=== PATIENT | female | born 1990 | race Asian ===

== ENCOUNTER 2019-10-03 09:58 | Day surgery (SDC) | payer OTHER, SELFPAY ==
[2019-09-29 11:19] LABS: BILIRUBIN,URINE NEGATIVE (NEGATIVE); CLARITY/URINE CLEAR (CLEAR); COLOR,URINE YELLOW (YELLOW); GLUCOSE,URINE NEGATIVE (NEGATIVE); KETONES,URINE NEGATIVE (NEGATIVE); LEUKOCYTE ESTERASE ,URINE TRACE (NEGATIVE); NITRITE, URINE NEGATIVE (NEGATIVE); PROTEIN URINE NEGATIVE (NEGATIVE); UROBILINOGEN,URINE 0.2 (0.2-1.0)
[2019-09-29 11:24] LABS: BASOPHILS % (AUTO) 0.6 % (0.0-2.0); EOSINOPHILS # (AUTO) 0.1 K/uL (0.0-0.4); EOSINOPHILS % (AUTO) 0.7 % (0.0-4.0); HEMATOCRIT 38.2 % (36-48); HEMOGLOBIN 12.9 g/dL (12.0-16.0); LYMPHOCYTES # (AUTO) 1.3 K/uL (1.0-5.5); LYMPHOCYTES % (AUTO) 14.9 % (20.5-51.5); MEAN CORPUSCULAR HEMOGLOBIN 28 pg (27-31); MEAN CORPUSCULAR HGB CONC 34 % (32-36); MEAN CORPUSCULAR VOLUME 83 fL (79.0-98.0); MONOCYTES # (AUTO) 0.6 K/uL (0.0-1.0); MONOCYTES % (AUTO) 6.6 % (1.7-9.3); NEUTROPHILS # (AUTO) 6.8 K/uL (1.8-7.7); NEUTROPHILS % (AUTO) 77.2 % (40.0-70.0); PLATELET COUNT (AUTO) 281 K/uL (130-430); RED BLOOD CELL COUNT(AUTO) 4.62 MIL/uL (4.2-6.2); RED CELL DISTRIBUTION WIDTH 13.4 % (9.0-15.0); WHITE BLOOD COUNT (AUTO) 8.8 K/uL (4.8-10.8)
[2019-09-29 11:26] LABS: BLOOD, URINE TRACE (NEGATIVE)
[2019-09-29 11:39] LABS: BACTERIA,URINE RARE /HPF (None Seen)
[~2019-10-03] VITALS: Ht 167.6 cm; Wt 78.9 kg
[2019-10-03 10:29] LABS: HCG,QUAL RESULT NEGATIVE (NEGATIVE)
[2019-10-03] MEDS ORDERED: fentaNYL CITRATE/PF 100 MCG/2 ML AMP IVP ONE (11:26)
[2019-10-03] MEDS ORDERED: CEFAZOLIN 2 GM IVPB PREMIX 50 ML IV ONE (11:26)
[2019-10-03] MEDS ORDERED: PROPOFOL 200MG/ 20ML VIAL (DIPRIVAN) IV ONE (11:26)
[2019-10-03] MEDS ORDERED: SEVOFLURANE 15 MIN GAS INH ONE (11:26)
[2019-10-03] MEDS ORDERED: ONDANSETRON HCL 4 MG/2 ML VIAL IVP ONE (11:26)
[2019-10-03] MEDS ORDERED: DEXAMETHASONE SOD PHOSPHATE 4 MG/ML VIAL IVP ONE (11:26)
[2019-10-03] MEDS ORDERED: NS IRRIG SOLN 1000 ML IR ONE (11:26)
[2019-10-03] MEDS ORDERED: BACITRACIN 50,000 UNITS VIAL ONE ×2 (11:35→12:10)
[2019-10-03] MEDS ORDERED: fentaNYL CITRATE/PF 100 MCG/2 ML AMP IVP PRN (13:30)
[2019-10-03] MEDS ORDERED: HYDROmorphone 1 MG INJ. 1 MG/ML AMPUL IVP PRN (13:30)
[2019-10-03] MEDS ORDERED: ONDANSETRON HCL 4 MG/2 ML VIAL IVP PRN (13:30)
[2019-10-03] MEDS ORDERED: HYDROcodone/ACETAMIN 10-325 MG TAB PO ONE (14:00)
[2019-10-03] MEDS ORDERED: ONDANSETRON HCL 4 MG/2 ML VIAL ONE (14:18)
[2019-10-03] MEDS ORDERED: HYDROmorphone 1 MG INJ. 1 MG/ML AMPUL ONE (14:19)
[2019-10-03] MEDS ORDERED: HYDROcodone/ACETAMIN 10-325 MG TAB PO PRN (15:45)
[2019-10-03] MEDS ORDERED: HYDROcodone/ACETAMIN 10-325 MG TAB ONE (16:20)
[2019-10-03 16:27] VITALS: BP_SYST 135
== END 2019-10-03 17:10 | disposition home or self-care (01) ==
LOC: SMU 09:58 → SDS 09:58
PROVIDERS: ATTEND Orthopaedic Surgery
DX: S82.042A Displaced comminuted fracture of left patella, initial encounter for closed fracture (principal); W19.XXXA Unspecified fall, initial encounter; Y93.89 Activity, other specified; Y92.89 Other specified places as the place of occurrence of the external cause; Y99.8 Other external cause status
CPT/HCPCS: 36415; 76000; 81000; 84703 ×2; 85025; C1713; J0690; J1100; J1170; J2405; J2704; J3010; J7120; L1830

== ENCOUNTER 2021-04-22 09:30 | Inpatient (IN) | payer OTHER, SELFPAY ==
[~2021-04-22] VITALS: Ht 167.6 cm; Wt 95.3 kg
[2021-04-22] MEDS ORDERED: TERBUTALINE SULFATE 1 MG/ML VIAL SUBCUT ONE (13:00)
[2021-04-22] MEDS ORDERED: LR 500 ML IV ONE (13:00)
[2021-04-22] MEDS ORDERED: OXYTOCIN/0.9 % SODIUM CHLORIDE 1,000 ML IV SCH (13:00)
[2021-04-22 13:37] LABS: BASOPHILS % (AUTO) 0.6 % (0.0-2.0); EOSINOPHILS # (AUTO) 0.1 K/uL (0.0-0.4); EOSINOPHILS % (AUTO) 0.9 % (0.0-4.0); HEMATOCRIT 37.3 % (36-48); HEMOGLOBIN 12.9 g/dL (12.0-16.0); LYMPHOCYTES # (AUTO) 1.5 K/uL (1.0-5.5); LYMPHOCYTES % (AUTO) 17.4 % (20.5-51.5); MEAN CORPUSCULAR HEMOGLOBIN 29 pg (27-31); MEAN CORPUSCULAR HGB CONC 35 % (32-36); MEAN CORPUSCULAR VOLUME 84 fL (79.0-98.0); MONOCYTES # (AUTO) 0.9 K/uL (0.0-1.0); MONOCYTES % (AUTO) 9.7 % (1.7-9.3); NEUTROPHILS # (AUTO) 6.3 K/uL (1.8-7.7); NEUTROPHILS % (AUTO) 71.4 % (40.0-70.0); PLATELET COUNT (AUTO) 205 K/uL (130-430); RED BLOOD CELL COUNT(AUTO) 4.45 MIL/uL (4.2-6.2); RED CELL DISTRIBUTION WIDTH 14.1 % (9.0-15.0); WHITE BLOOD COUNT (AUTO) 8.8 K/uL (4.8-10.8)
[2021-04-22] MEDS: LR 1,000 ML IV SCH ×2 (14:25→19:01)
[2021-04-22 20:37] VITALS: BP_SYST 138
[2021-04-22] MEDS ORDERED: AMPICILLIN SODIUM 2 GM in NS 100 ML IV ONE (21:15)
[2021-04-22] MEDS: NALBUPHINE HCL 10 MG/ML AMP IVP PRN (22:57)
[2021-04-23] MEDS: AMPICILLIN SODIUM 1 GM in NS 50 ML IV SCH ×4 (02:15→14:07)
[2021-04-23] MEDS: NALBUPHINE HCL 10 MG/ML AMP IVP PRN ×2 (03:02→06:13)
[2021-04-23] MEDS ORDERED: AMPICILLIN SODIUM 1 GM VIAL ONE (03:49)
[2021-04-23] MEDS ORDERED: FENT2mCg/mL-ROPIVA0.2%/NS EPID 200 ML EP SCH (08:00)
[2021-04-23] MEDS ORDERED: ROPIVACAINE HCL/PF 0.2% 200 ML ONE (08:01)
[2021-04-23] MEDS ORDERED: fentaNYL CITRATE/PF 100 MCG/2 ML AMP ONE (08:09)
[2021-04-23] MEDS ORDERED: DIPHENHYDRAMINE INJ 50 MG/ML VIAL IVP PRN ×2 (10:00→20:15)
[2021-04-23] MEDS ORDERED: NALOXONE HCL 0.4 MG/ML AMP (NARCAN) IVP PRN ×4 (10:00→20:15)
[2021-04-23] MEDS ORDERED: ONDANSETRON HCL 4 MG/2 ML VIAL IVP PRN ×3 (10:00→20:15)
[2021-04-23] MEDS ORDERED: CEFAZOLIN 2 GM IVPB PREMIX 50 ML IV ONE (17:30)
[2021-04-23] MEDS ORDERED: LR 1,000 ML IV ONE (17:30)
[2021-04-23] MEDS ORDERED: OXYCODONE/ACETAMINOPHEN *10*mg/325 mg TABLET PO PRN (18:00)
[2021-04-23] MEDS ORDERED: RHO(D) IMMUNE GLOBULIN/MALTOSE 1500 UNITS/1.3 ML (WINHRO) IM PRN (18:00)
[2021-04-23] MEDS ORDERED: LR 1,000 ML IV SCH (18:00)
[2021-04-23] MEDS ORDERED: BISACODYL 10 MG/SUPPOSITORY RC PRN (18:00)
[2021-04-23] MEDS ORDERED: ANUSOL 1 EA SUPP.RECT (PREPARATION H) RC PRN (18:00)
[2021-04-23] MEDS ORDERED: OXYCODONE/ACETAMINOPHEN 5-325 TABLET PO PRN (18:00)
[2021-04-23] MEDS ORDERED: MEASLES,MUMPS&RUBELLA VACC/PF 12500 UNIT/0.5 ML VIAL SUBQ PRN (18:00)
[2021-04-23] MEDS ORDERED: TEMAZEPAM 15 MG CAPSULE PO PRN (18:00)
[2021-04-23] MEDS ORDERED: DIPH-TET-PERTUS Vaccine 0.5 ML VIAL (ADACEL) I.M. PRN (18:00)
[2021-04-23] MEDS ORDERED: LANOLIN 7 GM OINT. TP PRN (18:00)
[2021-04-23] MEDS ORDERED: HYDROcodone/ACETAMIN 5-325 MG TAB (NORCO/ VICODIN) PO PRN (18:00)
[2021-04-23] MEDS ORDERED: fentaNYL CITRATE/PF 100 MCG/2 ML AMP IVP PRN ×2 (20:15)
[2021-04-23] MEDS ORDERED: MORPHINE SULFATE 10MG/10ML PF AMP EP SCH (20:15)
[2021-04-23] MEDS ORDERED: NALBUPHINE HCL 10 MG/ML AMP IVP PRN (20:15)
[2021-04-23] MEDS ORDERED: METOCLOPRAMIDE HCL 10 MG/2 ML VIAL IVP PRN (20:15)
[2021-04-23] MEDS ORDERED: KETOROLAC TROMETHAMINE 60 MG/2 ML VIAL IM PRN (20:15)
[2021-04-23] MEDS ORDERED: ACETAMINOPHEN 500 MG TABLET ONE (20:38)
[2021-04-23] MEDS ORDERED: ACETAMINOPHEN I.V. 1000 MG 100 ML IV ONE ×2 (20:45→20:51)
[2021-04-23 20:51] VITALS: BP_SYST 118
[2021-04-23] MEDS ORDERED: SENNOSIDES/DOCUSATE SODIUM 1 TAB TABLET(SENOKOT-S) PO SCH (21:00)
[2021-04-23] MEDS: OXYTOCIN/0.9 % SODIUM CHLORIDE 1,000 ML IV SCH (23:45)
[2021-04-24] MEDS: CEFAZOLIN 1 GM IVPB PREMIX 50 ML IV SCH ×3 (00:27→12:26)
[2021-04-24] MEDS ORDERED: KETOROLAC TROMETHAMINE 30 MG VIAL IVP SCH (06:00)
[2021-04-24 07:18] LABS: BASOPHILS # (AUTO) 0.1 K/uL (0.0-0.2); BASOPHILS % (AUTO) 0.4 % (0.0-2.0); EOSINOPHILS % (AUTO) 0.2 % (0.0-4.0); HEMOGLOBIN 11.1 g/dL (12.0-16.0); LYMPHOCYTES # (AUTO) 1.1 K/uL (1.0-5.5); MEAN CORPUSCULAR HEMOGLOBIN 29 pg (27-31); MEAN CORPUSCULAR HGB CONC 34 % (32-36); MEAN CORPUSCULAR VOLUME 85 fL (79.0-98.0); MONOCYTES # (AUTO) 1.3 K/uL (0.0-1.0); MONOCYTES % (AUTO) 9.2 % (1.7-9.3); NEUTROPHILS # (AUTO) 11.7 K/uL (1.8-7.7); NEUTROPHILS % (AUTO) 82.2 % (40.0-70.0); PLATELET COUNT (AUTO) 172 K/uL (130-430); RED BLOOD CELL COUNT(AUTO) 3.89 MIL/uL (4.2-6.2); RED CELL DISTRIBUTION WIDTH 14.2 % (9.0-15.0); WHITE BLOOD COUNT (AUTO) 14.2 K/uL (4.8-10.8)
[2021-04-24] MEDS: OXYTOCIN/0.9 % SODIUM CHLORIDE 1,000 ML IV SCH (09:00)
[2021-04-24] MEDS: SIMETHICONE 80 MG TAB.CHEW PO PRN ×3 (09:00→17:35)
[2021-04-24] MEDS: DOCUSATE SODIUM 100 MG CAPSULE PO SCH ×2 (09:08→22:12)
[2021-04-24] MEDS ORDERED: BACITRACIN 1 GM OINT TP ONE (11:30)
[2021-04-24] MEDS ORDERED: BISACODYL 10 MG/SUPPOSITORY RC ONE ×2 (12:00→18:00)
[2021-04-24] MEDS: IBUPROFEN 600 MG TABLET PO SCH ×2 (12:54→18:30)
[2021-04-24] MEDS ORDERED: BACITRACIN 1 GM OINT TP SCH (15:00)
[2021-04-25] MEDS: IBUPROFEN 600 MG TABLET PO SCH ×3 (00:14→13:18)
[2021-04-25] MEDS ORDERED: IBUPROFEN 600 MG TABLET PO SCH (06:00)
[2021-04-25] MEDS ORDERED: NS IRRIG SOLN 1000 ML IR ONE (10:49)
[2021-04-25] MEDS ORDERED: WATER FOR IRRIGATION,STERILE 1,000 ML IRRIG.SOLN IR ONE (10:49)
[2021-04-25] MEDS: DOCUSATE SODIUM 100 MG CAPSULE PO SCH (13:19)
[2021-04-25] MEDS: SIMETHICONE 80 MG TAB.CHEW PO PRN (13:19)
== END 2021-04-25 14:25 | disposition home or self-care (01) | DRG 788 ==
LOC: SPU 09:30
PROVIDERS: ADMIT Specialist; ATTEND Specialist
PROC: 10D00Z1 Extraction of Products of Conception, Low, Open Approach (ICD-10-PCS; principal; 2021-04-25)
DX: O42.92 Full-term premature rupture of membranes, unspecified as to length of time between rupture and onset of labor (principal); O62.2 Other uterine inertia; O76 Abnormality in fetal heart rate and rhythm complicating labor and delivery; Z37.0 Single live birth; Z3A.38 38 weeks gestation of pregnancy; Z20.822 Contact with and (suspected) exposure to COVID-19
CPT/HCPCS: 36415; 76815; 82962; 85025; 86592; 86886; 86900; 86901; 88307; J0131; J0290; J0690; J2300; J2590; J3010

== ENCOUNTER 2021-12-06 11:06 | Day surgery (SDC) | payer OTHER ==
[2021-12-03 11:10] LABS: MEAN CORPUSCULAR HEMOGLOBIN 27 pg (27-31)
[2021-12-03 11:20] LABS: CREATININE 0.65 mg/dL (0.55-1.30); POTASSIUM 4.1 mmol/L (3.5-5.1)
[2021-12-03 11:22] LABS: BASOPHILS # (AUTO) 0.1 K/uL (0.0-0.2); EOSINOPHILS # (AUTO) 0.3 K/uL (0.0-0.4); HEMATOCRIT 36.5 % (36-48); HEMOGLOBIN 12.5 g/dL (12.0-16.0); LYMPHOCYTES # (AUTO) 2.2 K/uL (1.0-5.5); LYMPHOCYTES % (AUTO) 33.6 % (20.5-51.5); MEAN CORPUSCULAR HGB CONC 34 % (32-36); MEAN CORPUSCULAR VOLUME 80 fL (79.0-98.0); MONOCYTES # (AUTO) 0.5 K/uL (0.0-1.0); MONOCYTES % (AUTO) 8.1 % (1.7-9.3); NEUTROPHILS # (AUTO) 3.4 K/uL (1.8-7.7); NEUTROPHILS % (AUTO) 52.3 % (40.0-70.0); PLATELET COUNT (AUTO) 251 K/uL (130-430); RED BLOOD CELL COUNT(AUTO) 4.57 MIL/uL (4.2-6.2); RED CELL DISTRIBUTION WIDTH 13.2 % (9.0-15.0); WHITE BLOOD COUNT (AUTO) 6.5 K/uL (4.8-10.8)
[2021-12-03 11:27] LABS: PROTHROMBIN TIME 9.9 SECS (9.5-12.5)
[2021-12-03 11:39] LABS: BILIRUBIN,URINE NEGATIVE (NEGATIVE); CLARITY/URINE CLEAR (CLEAR); COLOR,URINE YELLOW (YELLOW); GLUCOSE,URINE NEGATIVE (NEGATIVE); KETONES,URINE NEGATIVE (NEGATIVE); LEUKOCYTE ESTERASE ,URINE NEGATIVE (NEGATIVE); NITRITE, URINE NEGATIVE (NEGATIVE); PROTEIN URINE NEGATIVE (NEGATIVE); UROBILINOGEN,URINE 0.2 (0.2-1.0)
[2021-12-03 11:44] LABS: BLOOD, URINE TRACE (NEGATIVE)
[2021-12-03 11:58] LABS: BACTERIA,URINE RARE /HPF (None Seen); WBC,URINE NONE SEEN /HPF (0-3)
[~2021-12-06] VITALS: Ht 167.6 cm; Wt 80.7 kg
[2021-12-06] MEDS ORDERED: ONDANSETRON HCL 4 MG/2 ML VIAL IVP ONE (12:09)
[2021-12-06] MEDS ORDERED: fentaNYL CITRATE 250 MCG/5 ML AMP IV ONE (12:09)
[2021-12-06] MEDS ORDERED: PROPOFOL 200MG/ 20ML VIAL (DIPRIVAN) IV ONE (12:09)
[2021-12-06] MEDS ORDERED: LR 1,000 ML IV.SOLN IV ONE (12:09)
[2021-12-06] MEDS ORDERED: DEXAMETHASONE SOD PHOSPHATE 4 MG/ML VIAL IVP ONE (12:09)
[2021-12-06] MEDS ORDERED: SEVOFLURANE 15 MIN GAS INH ONE (12:09)
[2021-12-06] MEDS ORDERED: MIDAZOLAM HCL 5 MG/5 ML VIAL IVP ONE (12:09)
[2021-12-06] MEDS ORDERED: KETOROLAC TROMETHAMINE 30 MG VIAL IVP ONE (12:09)
[2021-12-06] MEDS ORDERED: LIDOCAINE 1% 10 MG/ML, 20 ML MDV INJ ONE (12:09)
[2021-12-06] MEDS ORDERED: ACETAMINOPHEN I.V. 1000 MG 100 ML IV ONE (12:39)
[2021-12-06] MEDS ORDERED: HYDROmorphone 1 MG/ML INJ. CARTRIDGE IVP PRN ×2 (12:45)
[2021-12-06] MEDS ORDERED: LR 1,000 ML IV SCH (12:45)
[2021-12-06] MEDS ORDERED: METOCLOPRAMIDE HCL 10 MG/2 ML VIAL IVP PRN (12:45)
[2021-12-06] MEDS ORDERED: MEPERIDINE HCL/PF 25 MG/ML DISP.SYRIN IVP PRN (12:45)
[2021-12-06 15:22] VITALS: BP_SYST 110
== END 2021-12-06 15:25 | disposition home or self-care (01) ==
LOC: SDS 11:06 → SMU 11:07 → SDS 15:25
PROVIDERS: ATTEND Orthopaedic Surgery
DX: Z47.2 Encounter for removal of internal fixation device (principal); Z79.01 Long term (current) use of anticoagulants; Z20.822 Contact with and (suspected) exposure to COVID-19
CPT/HCPCS: 80048; 81000; 84703; 85025; 85610; 85730; 36415 ×2; 20680; 88300; 87426; U0003; J0131; J1100; J1885; J2001; J2250; J2405; J2704; J3010; J7120